=== PATIENT | female | born 1955 | race Caucasian/White ===

== ENCOUNTER → 2020-05-11 | Outpatient (CLI) | payer MEDICARE, OTHER ==
[~2020-05-11] MED LIST: DITROPAN 5 MG TA5 MG PO; DOCUSATE SODIU250 MG PO; GABAPENTIN300 MG PO; HYDROCODON-ACE1 EAC4 PO; HYDROCODONE-AC1 EACH PO; IBUPROFEN600 MG PO; MIRALAX17 GM PO; NORCO 10-325 T1 EACH PO; PEPCID40 MG PO; PRAVASTATIN SOD40 MG PO; PROTONIX 40 MG40 M1 PO; ROPINIROLE HC0.25 MG PO; TRAZODONE HCL150 MG PO
== END ==
LOC: EXRD 08:00
DX: R10.813 Right lower quadrant abdominal tenderness (principal); N28.1 Cyst of kidney, acquired; Z90.49 Acquired absence of other specified parts of digestive tract
CPT/HCPCS: 76700

== ENCOUNTER → 2020-07-27 | Outpatient (CLI) | payer MEDICARE, OTHER | LOC: RAD 09:21 | DX: K59.00 Constipation, unspecified (principal); K56.699 Other intestinal obstruction unspecified as to partial versus complete obstruction | CPT/HCPCS: 74250 ==

== ENCOUNTER 2020-08-24 12:57 | Emergency (ER) | payer MEDICARE, OTHER ==
[~2020-08-24 12:57] MED LIST changes: -DITROPAN 5 MG TA5 MG PO; -DOCUSATE SODIU250 MG PO; -HYDROCODONE-AC1 EACH PO; -IBUPROFEN600 MG PO
[2020-08-24 13:40] LABS: HEMOGLOBIN 13.9 gm/dl (12.3-15.3); RED BLOOD COUNT 4.85 M/UL (4.00-5.10)
[2020-08-24 14:08] LABS: BUN/CREATININE RATIO 21 (0-10)
[2020-09-22] MEDS ORDERED: HYDROCODON-ACE1 EAC4 PO (10:40)
[2020-09-22] MEDS ORDERED: MIRALAX17 GM PO (10:43)
[2020-09-22] MEDS ORDERED: PRAVASTATIN SOD40 MG PO (10:45)
[2020-09-22] MEDS ORDERED: ROPINIROLE HC0.25 MG PO (10:46)
[2020-09-22] MEDS ORDERED: TRAZODONE HCL150 MG PO (10:46)
== END 2020-08-24 17:03 | disposition home or self-care (01) ==
LOC: ER1 12:57
PROVIDERS: Emergency Medicine
DX: R10.9 Unspecified abdominal pain (principal); R19.7 Diarrhea, unspecified; R11.10 Vomiting, unspecified; F17.200 Nicotine dependence, unspecified, uncomplicated
CPT/HCPCS: 80053; 81001; 82550; 82553; 83605; 83690; 83874; 84484; 85025; 93005; 96374; 96375; 99284; J2270; J2405; J7030; Q9967

== ENCOUNTER → 2020-09-22 | Outpatient (CLI) | payer MEDICARE, OTHER ==
[~2020-09-22] MED LIST changes: +DITROPAN 5 MG TA5 MG PO; +DOCUSATE SODIU250 MG PO; +HYDROCODONE-AC1 EACH PO; +IBUPROFEN600 MG PO
[2020-09-22 10:40] LABS: HEMOGLOBIN 14.6 gm/dl (12.3-15.3); WHITE BLOOD COUNT 7.3 K/UL (4.5-11.0)
== END ==
LOC: OPSV2 09:00
PROVIDERS: Obstetrics & Gynecology
DX: Z01.818 Encounter for other preprocedural examination (principal); N81.9 Female genital prolapse, unspecified; M95.4 Acquired deformity of chest and rib
CPT/HCPCS: 36415; 71046; 81001; 85025

== ENCOUNTER 2020-10-03 08:26 | Day surgery (SDC) | payer MEDICARE, OTHER ==
[~2020-10-03] VITALS: Ht 167.6 cm; Wt 73.9 kg
[~2020-10-03 08:26] MED LIST changes: -DITROPAN 5 MG TA5 MG PO; -DOCUSATE SODIU250 MG PO; -HYDROCODONE-AC1 EACH PO; -IBUPROFEN600 MG PO
[2020-10-03] MEDS ORDERED: HYDROCODONE-AC1 EACH PO (13:33)
[2020-10-03] MEDS ORDERED: DITROPAN 5 MG TA5 MG PO (13:33)
[2020-10-03] MEDS ORDERED: IBUPROFEN600 MG PO (13:33)
[2020-10-03] MEDS ORDERED: DOCUSATE SODIU250 MG PO (13:33)
== END 2020-10-04 11:42 | disposition home or self-care (01) ==
LOC: M/S 08:26 → OR 08:26 → M/S 16:55 → OR 10-04 11:42
PROVIDERS: Obstetrics & Gynecology
PROC: 0JQC0ZZ Repair Pelvic Region Subcutaneous Tissue and Fascia, Open Approach (ICD-10-PCS; principal; 2020-10-03 12:45)
PROC: 0USG4ZZ Reposition Vagina, Percutaneous Endoscopic Approach (ICD-10-PCS; principal; 2020-10-03 12:45)
DX: N81.10 Cystocele, unspecified (principal); N32.89 Other specified disorders of bladder; N89.5 Stricture and atresia of vagina; K66.0 Peritoneal adhesions (postprocedural) (postinfection); R33.9 Retention of urine, unspecified; K59.00 Constipation, unspecified; F17.210 Nicotine dependence, cigarettes, uncomplicated; E78.5 Hyperlipidemia, unspecified; J44.9 Chronic obstructive pulmonary disease, unspecified; K21.9 Gastro-esophageal reflux disease without esophagitis; M19.90 Unspecified osteoarthritis, unspecified site; G89.29 Other chronic pain; M54.9 Dorsalgia, unspecified; G25.81 Restless legs syndrome; Z79.899 Other long term (current) drug therapy
CPT/HCPCS: C1769; J0690; J1100; J1885; J2001; J2405; J2704; J2710; J3010; J7050; J7120

== ENCOUNTER → 2021-04-04 | Outpatient (CLI) | payer MEDICARE, OTHER ==
[~2021-04-04] MED LIST changes: +DITROPAN 5 MG TA5 MG PO; +DOCUSATE SODIU250 MG PO; +HYDROCODONE-AC1 EACH PO; +IBUPROFEN600 MG PO
== END ==
LOC: KOH-I 09:35
DX: J44.9 Chronic obstructive pulmonary disease, unspecified (principal)
CPT/HCPCS: 71271

== ENCOUNTER → 2021-04-10 | Outpatient (CLI) | payer MEDICARE, OTHER | LOC: MAMO 08:52 | DX: Z12.31 Encounter for screening mammogram for malignant neoplasm of breast (principal) | CPT/HCPCS: 77063; 77067 ==

== ENCOUNTER → 2021-10-16 | Outpatient (CLI) | payer MEDICARE, OTHER | LOC: EXRD 13:11 | DX: R06.02 Shortness of breath (principal); M25.551 Pain in right hip; M25.552 Pain in left hip; M25.511 Pain in right shoulder; M25.512 Pain in left shoulder; M47.816 Spondylosis without myelopathy or radiculopathy, lumbar region; M47.812 Spondylosis without myelopathy or radiculopathy, cervical region; M54.2 Cervicalgia; M54.6 Pain in thoracic spine; M54.50 Low back pain, unspecified | CPT/HCPCS: 71046; 72040; 72070; 72100; 73030; 73522 ==

== ENCOUNTER → 2021-11-28 | Outpatient (CLI) | payer MEDICARE, OTHER | LOC: NM 09:00 | DX: R68.89 Other general symptoms and signs (principal); R06.02 Shortness of breath; R94.31 Abnormal electrocardiogram [ECG] [EKG]; R07.9 Chest pain, unspecified; E04.2 Nontoxic multinodular goiter; R93.89 Abnormal findings on diagnostic imaging of other specified body structures; I25.9 Chronic ischemic heart disease, unspecified | CPT/HCPCS: 76536; 78452; 93017; A9502; J2785 ==

== ENCOUNTER → 2021-12-07 | Outpatient (CLI) | payer MEDICARE, OTHER ==
[~2021-12-07] MED LIST changes: +AZELASTINE137 MCG/0. INH; +FEXOFENADINE H180 MG PO; +FLONASE 0.05% N16 GM; +GABAPENTIN400 MG PO; +LYRICA100 MG PO; +PROAIR HFA8.5 GM INH; +SINGULAIR10 MG PO; +TRAZODONE HCL100 MG PO; +VITAMIN B-121000 MC2 SL
[2021-12-07 11:06] LABS: HEMOGLOBIN 15.4 gm/dl (12.3-15.3); RED BLOOD COUNT 5.32 M/UL (4.00-5.10); WHITE BLOOD COUNT 9.3 K/UL (4.5-11.0)
[2021-12-07 11:32] LABS: BUN/CREATININE RATIO 20 (0-10)
== END ==
LOC: LAB 10:37
PROVIDERS: Internal Medicine Interventional Cardiology
DX: Z01.818 Encounter for other preprocedural examination (principal); R94.39 Abnormal result of other cardiovascular function study; I20.8 Other forms of angina pectoris; M79.609 Pain in unspecified limb; K21.9 Gastro-esophageal reflux disease without esophagitis; R13.10 Dysphagia, unspecified; J44.9 Chronic obstructive pulmonary disease, unspecified; E53.8 Deficiency of other specified B group vitamins; E78.00 Pure hypercholesterolemia, unspecified; E55.9 Vitamin D deficiency, unspecified
CPT/HCPCS: 36415; 80048; 85025; 85610; 85730; 93005

== ENCOUNTER → 2021-12-11 | Outpatient (CLI) | payer MEDICARE, OTHER | LOC: CATH 08:59 | DX: R94.39 Abnormal result of other cardiovascular function study (principal); I20.8 Other forms of angina pectoris; I10 Essential (primary) hypertension; J98.4 Other disorders of lung; E78.5 Hyperlipidemia, unspecified; R07.9 Chest pain, unspecified; R06.02 Shortness of breath; F17.200 Nicotine dependence, unspecified, uncomplicated; Z79.83 Long term (current) use of bisphosphonates; Z82.49 Family history of ischemic heart disease and other diseases of the circulatory system; Z83.3 Family history of diabetes mellitus | CPT/HCPCS: 99152; C1769; C1887; C1894; J1644; J2250; J3010; Q9967 ==

== ENCOUNTER → 2022-01-11 | Outpatient (CLI) | payer MEDICARE, OTHER | LOC: MAMO 13:13 → US 13:30 → MAMO 14:30 → US 01-12 15:00 | DX: N64.4 Mastodynia (principal); N60.19 Diffuse cystic mastopathy of unspecified breast | CPT/HCPCS: 76641; 77066; G0279 ==

== ENCOUNTER → 2022-01-25 | Outpatient (CLI) | payer MEDICARE, OTHER | LOC: KOH-I 15:03 | DX: M79.661 Pain in right lower leg (principal); M79.604 Pain in right leg; M79.89 Other specified soft tissue disorders; F17.210 Nicotine dependence, cigarettes, uncomplicated | CPT/HCPCS: 93971 ==

== ENCOUNTER → 2022-01-30 | Outpatient (CLI) | payer MEDICARE, OTHER | LOC: KOH-I 10:03 | DX: M96.1 Postlaminectomy syndrome, not elsewhere classified (principal); M47.816 Spondylosis without myelopathy or radiculopathy, lumbar region; M43.16 Spondylolisthesis, lumbar region | CPT/HCPCS: 72100 ==